=== PATIENT | male | born 1995 | race Caucasian/White ===

== ENCOUNTER 2017-10-01 18:04 | Emergency (ER) | payer OTHER ==
[2017-10-01] MEDS: NAPROXEN 250 MG TAB PO (19:06)
== END 2017-10-01 19:27 | disposition home or self-care (01) ==
LOC: M ED 18:04
DX: M25.512 Pain in left shoulder (principal); F90.0 Attention-deficit hyperactivity disorder, predominantly inattentive type; Z77.098 Contact with and (suspected) exposure to other hazardous, chiefly nonmedicinal, chemicals; Z79.899 Other long term (current) drug therapy
CPT/HCPCS: 73030

== ENCOUNTER 2020-02-10 16:02 | Emergency (ER) | payer OTHER ==
[~2020-02-10] VITALS: Ht 177.8 cm; Wt 84.3 kg
[~2020-02-10 16:02] MED LIST: ADDE15CA3 PO
--- NOTE | 2020-02-10 16:42 | REP ---
INDICATION: SOB, concern for aspiration COMPARISON: None. TECHNIQUE: PA and lateral. FINDINGS: Mediastinum and cardiac silhouette are normal. The lung vill[place] demonstrate increased perihilar and interstitial markings suggesting viral pneumonia pattern. No focal consolidation. No effusion. No pneumothorax. Skeletal structures intact. IMPRESSION: Findings suggesting viral pneumonia. <Electronically signed by Loi Fabian > 02/10/20 [id number]
[2020-02-10 17:07] LABS: BASO % 0.3 % (0.0-1.0); EOS # 0.3 10^3/uL (0.0-0.5); EOS % 3.3 % (0.0-3.0); LYMPH # 2.9 10^3/uL (1.5-5.0); LYMPH % 37.3 % (24.0-44.0); MEAN CORPUSCULAR HEMOGLOBIN 30.1 pg (27.0-33.0); MEAN CORPUSCULAR HGB CONC 34.8 g/dl (32.0-36.5); MEAN CORPUSCULAR VOLUME 86.5 fl (80.0-96.0); MONO # 0.7 10^3/uL (0.0-0.8); MONO % 8.9 % (0.0-5.0); NEUTROPHILS # 3.8 10^3/uL (1.5-8.5); NEUTROPHILS % 49.9 % (36.0-66.0); PLATELET COUNT, AUTOMATED 222 10^3/uL (150-450); RED BLOOD COUNT 5.32 10^6/uL (4.30-6.10); WHITE BLOOD COUNT 7.7 10^3/uL (4.0-10.0)
[2020-02-10 17:27] LABS: BLOOD UREA NITROGEN 17 MG/DL (7-18); CALCIUM LEVEL 9.4 MG/DL (8.5-10.1); CARBON DIOXIDE LEVEL 32 MEQ/L (21-32); CHLORIDE LEVEL 104 MEQ/L (98-107); CK-MB VALUE MASS 2.6 NG/ML (<3.6); CPK CREATINE PHOSPHOKINASE 261 U/L (39-308); CREATININE FOR GFR 0.96 MG/DL (0.70-1.30); GLOMERULAR FILTRATION RATE > 60.0 (>60); GLUCOSE, FASTING 102 MG/DL (70-100); POTASSIUM SERUM 3.8 MEQ/L (3.5-5.1); SODIUM LEVEL 140 MEQ/L (136-145); TROPONIN I < 0.02 NG/ML (< 0.10)
[2020-02-10 17:56] VITALS: BP 113/59
--- NOTE | 2020-02-11 07:35 | ECGEPIP ---
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
== END 2020-02-10 17:57 | disposition home or self-care (01) ==
LOC: M ED 16:02
DX: R06.02 Shortness of breath (principal); Z20.828 Contact with and (suspected) exposure to other viral communicable diseases
CPT/HCPCS: 36415; 71046; 80048; 82550; 82553; 84484; 85025; 85379; 93005; 99284; U0003

== ENCOUNTER 2020-02-15 18:47 | Emergency (ER) | payer OTHER ==
[~2020-02-15] VITALS: Ht 175.3 cm; Wt 79.5 kg
[2020-02-15] MEDS ORDERED: LIDOCAINE 2% MDV 20ML VIAL As Ordered ONE (19:38)
[2020-02-15] MEDS ORDERED: LIDOCAINE 2% MDV 20ML VIAL SC ONE (19:45)
[2020-02-15] MEDS ORDERED: ONDANSETRON 4MG/2ML VIAL IV ONE (19:45)
[2020-02-15] MEDS ORDERED: MORPHINE 4 MG/ML 1ML VIAL/SYRINGE (J2270) IV ONE (19:45)
--- NOTE | 2020-02-15 20:19 | REP ---
INDICATION: TRAUMA COMPARISON: None. TECHNIQUE: Three views of the left shoulder. FINDINGS: Anteroinferior glenohumeral joint dislocation noted. No obvious acute fracture. Acromioclavicular joint appears intact. IMPRESSION: Acute anteroinferior glenohumeral joint dislocation. <Electronically signed by Loi Fabian > 02/15/202014
--- NOTE | 2020-02-15 20:54 | REPVR ---
PROCEDURE INFORMATION: Exam: XR Left Shoulder Exam date and time: 02/15/2020 8:33 PM Age: 24 years old Clinical indication: Condition or disease; Other: Post reduction TECHNIQUE: Imaging protocol: XR Left shoulder. Views: 2 or more views. COMPARISON: CR Shoulder, complete 02/15/2020 7:22 PM FINDINGS: Bones/joints: Anatomic reduction of the previously dislocated left shoulder. There is mild depression of the superolateral aspect of the humerus consistent with a mild Hill-Sachs deformity. Soft tissues: Normal. IMPRESSION: 1. Anatomic reduction of a previously dislocated left shoulder since a study done earlier in the day. 2. Mild Hill-Sachs deformity of the superolateral humeral head. Electronically signed by: Tee Miles On 02/15/2020 20:54:17 PM
[2020-02-15 20:56] VITALS: BP 149/84
== END 2020-02-15 20:58 | disposition home or self-care (01) ==
LOC: M ED 18:47
DX: M24.412 Recurrent dislocation, left shoulder (principal); W01.198A Fall on same level from slipping, tripping and stumbling with subsequent striking against other object, initial encounter; Y92.410 Unspecified street and highway as the place of occurrence of the external cause; Y93.67 Activity, basketball; Y99.8 Other external cause status
CPT/HCPCS: 23650; 73030; 96374; 96375; 99284; J2270; J2405

== ENCOUNTER 2020-09-16 15:56 | Emergency (ER) | payer OTHER ==
[~2020-09-16] VITALS: Ht 177.8 cm; Wt 87.4 kg
[2020-09-16 15:57] VITALS: BP 148/64
== END 2020-09-16 19:20 | disposition home or self-care (01) ==
LOC: M ED 15:56
DX: H61.23 Impacted cerumen, bilateral (principal); F90.9 Attention-deficit hyperactivity disorder, unspecified type